=== PATIENT | male | born 1990 | race Two or more races ===

== ENCOUNTER 2024-10-07 23:48 | Emergency (ER) | payer MEDICAID, SELFPAY ==
[2024-10-07 23:58] VITALS: BP 159/109; PULSE 121; RESP 18; TEMP 37.4; O2SAT 99
--- NOTE | 2024-10-08 00:19 | EKG_ITS ---
[facility] Test Date: 2024-10-08 Pat Name: ALEXUS EAGLE Department: Room: - Gender: Male Hand Packer: : 1990 Requested By: Sanket Farfan Order Number: [id number] Reading MD: Sanket Farfan Measurements Intervals [place] Rate: 122 P: 37 MD: 126 QRS: 55 QRSD: 85 T: 23 QT: 295 QTc: 421 Interpretive Statements SINUS TACHYCARDIA LOW QRS VOLTAGE IN PRECORDIAL LEADS [QRS DEFLECTION < 1.0 mV IN CHEST LEADS] NONSPECIFIC T-WAVE ABNORMALITY ABNORMAL RHYTHM ECG No previous ECG available for comparison /store/S0/[id number].pdf
--- NOTE | 2024-10-08 00:20 | PD.EDRME ---
Rapid Medical Screening Exam RME Arrival date/time: 10/07/24 23:48 34 year old male present to ED for c/o dizziness, weakness. I have greeted and performed a focused initial assessment of this patient. A comprehensive ED assessment and evaluation of the patient, analysis of all test results, and completion of the medical decision making process will be conducted by additional ED providers. Chief Complaint: General Adult/Misc Complain Time Seen by Provider: 10/07/24 23:59 Vital signs: Vital Signs Temperature 99.4 F 10/07/24 23:58 Pulse Rate 121 H 10/07/24 23:58 Respiratory Rate 18 10/07/24 23:58 Blood Pressure 159/109 H 10/07/24 23:58 Pulse Oximetry (%) 99 10/07/24 23:58 Oxygen Delivery Method Room Air 10/07/24 23:58
[2024-10-08 01:06] LABS: Basophils # (Auto) 0.1 Thou/mm3 (0.0-0.2); Basophils % (Auto) 1 % (0-2.5); Eosinophils # (Auto) 0.1 Thou/mm3 (0.0-0.5); Eosinophils % (Auto) 1 % (0-10); Hematocrit 44.4 % (41.0-53.0); Hemoglobin 15.5 g/dL (13.5-16.0); Immature Granulocytes % (Auto) 0 % (0-0); Immature Granulocytes Auto 0.02 Thou/mm3 (0.00-0.00); Lymphocytes # (Auto) 1.4 Thou/mm3 (1.0-4.8); Lymphocytes % (Auto) 14 % (10-50); Mean Corpuscular HGB Conc 34.9 g/dl (31.0-37.0); Mean Corpuscular Volume 92 fL (80-100); Monocytes # (Auto) 0.8 Thou/mm3 (0.0-0.8); Monocytes % (Auto) 8 % (0-12); Neutrophils # (Auto) 7.6 Thou/mm3 (1.8-7.7); Neutrophils % (Auto) 77 % (37-80); Nucleated Red Blood Cell % 0 /100 WBC (0); Platelet Count 316 Thou/mm3 (140-440); RDW Standard Deviation 38.5 fL (35.1-43.9); Red Blood Count 4.85 Miln/mm3 (4.50-5.90)
[2024-10-08 01:30] LABS: Collection Type, Urine Voided; Squamous Epithelial Cell,Urine 0 /hpf (0-5); WBC,Urine 0 /hpf (0-5)
[2024-10-08 01:36] LABS: Bilirubin,Urine Negative (Negative); Blood,Urine Negative (Negative); Clarity,Urine Clear (Clear/Hazy); Color,Urine Colorless (Lt Yel-Yel); Glucose, Urine Negative (Negative); Ketones,Urine Negative (Negative); Leukocyte Esterase,Urine Negative (Negative); Nitrite,Urine Negative (Negative); Protein,Urine Negative (Neg - Trace); RBC,Urine < 1 /hpf (0-3); Specific Gravity,Urine 1.015 (1.001-1.035); Urobilinogen,Urine Negative mg/dL (0.0-1.0)
[2024-10-08 01:37] LABS: Alanine Aminotransferase 24 U/L (10-49); Albumin, Serum 4.7 gm/dL (3.5-5.0); Alcohol, Blood Medical < 3.0 mg/dL (0-10.0); Alkaline Phosphatase 111 U/L (46-116); Anion Gap 8 (7-16); Aspartate Amino Transferase 18 U/L (0-34); BUN/Creatinine Ratio 12 Ratio (12-20); Bilirubin,Total 0.6 mg/dL (0.3-1.2); Blood Urea Nitrogen 11 mg/dL (9-23); Calcium 9.2 mg/dL (8.3-10.6); Calcium (Corrected) 9.2 mg/dL (8.5-10.1); Carbon Dioxide 25.8 mMol/L (20.0-31.0); Chloride 106 mMol/L (98-107); Creatinine (Component) 0.9 mg/dL (0.6-1.3); Globulin 2.3 gm/dL (2.3-3.5); Glucose 141 mg/dL (74-106); Lipase 36 U/L (12-53); Osmolality,Calculated 280 (275-295); Potassium 3.8 mMol/L (3.4-5.1); Sodium 140 mMol/L (136-145); Troponin I < 0.020 ng/mL (0.0-0.045); eGFR > 60 See Note
[2024-10-08 01:42] LABS: Amphetamine/Methamp Scrn,U Negative (Negative); Barbiturate Screen,Urine Negative (Negative); Benzodiazepines Screen,Urine Negative (Negative); Benzoylecgonine Screen, Ur Negative (Negative); Fentanyl Screen,Urine Negative (Negative); Opiate Screen,Urine Negative (Negative); THC Screen,Urine Negative (Negative)
[2024-10-08 03:34] LABS: Troponin I < 0.002 ng/mL (0.0-0.045)
[2024-10-08 03:49] VITALS: BP 151/89; PULSE 97; RESP 18; TEMP 36.6; O2SAT 97
--- NOTE | 2024-10-08 03:50 | EDNOTE_ITS ---
<Statement entered by Holly Spann MD - 10/08/24 05:11> As co-signing physician, I was present and available for consult prn. I concur with the plan and care as documented by the midlevel provider. ED General RME/HPI General Chief complaint: General Adult/Misc Complain Stated complaint: DIZZINESS, SHAKING, HIGH BP Time Seen by Provider: 10/07/24 23:59 Arrival date/time: 10/07/24 23:48 34 year old male present to emergency room with c/o of dizziness and heart palpitation today. denies any alcohol or illicit drug use SEVERITY: Symptoms are described as being severe with limitations on activities of daily living CONTEXT: The patient is unable to identify any inciting events. DURATION/TIMING: The symptoms started approximately one day mauricio and have been constant since and have been progressive getting worse. ASSOCIATED SYMPTOMS: dizziness, weakness, rapid hr MODIFYING FACTORS: The patient is unable to identify any alleviating or aggravating symptoms. PERTINENT ROS: no fevers, no cough, no pleuritic pain, no ripping or tearing sensations, denies any lower extremity edema and no unilateral swelling, no chest pain/shortness of breath no nausea,vomiting, diarrhea, no headache no rash no loc/syncope episode no abd/back pain no dsyuria,urgency,frequency REVIEW OF SYSTEMS: See History of Present Illness - with the exception of those mentioned in the history of present illness, all other systems reviewed and reported as negative GENERAL: In general the patient is awake, interactive, in an emergency department gurney. HEAD/EYES/EARS/NOSE/THROAT: normo-cephalic, atraumatic, mucus membranes are moist, anicteric, palpebral conjunctiva is pink, trachea is midline. CARDIOVASCULAR: regular rate and regular rhythm, no murmurs, heart sounds are not distant, strong pulses in all four extremities that are equal and symmetric bilateral upper and lower extremities, normal capillary refill. CHEST/PULMONARY: + tachycardia normal chest rise and fall, good air movement, clear to auscultation bilaterally, normal inspiratory to expiratory ratios without evidence of respiratory distress. NECK: No midline/Paraspinal tenderness, no step off ROM/Strenght intact No Kernig and bruzinski sign. No trauma ABDOMEN: soft, not tender, no masses appreciated BACK: normal range of motion without pain. NEUROLOGICAL: cranio-facial features are symmetric, moves all four extremities equally without obvious limitations or weakness. EXTREMITY: no tenderness to palpation over the long bones or large joints of the bilateral upper and lower extremities, no joint swelling, no joint erythema, no signs of trauma, no unilateral leg swelling and no peripheral edema. SKIN: warm, dry, well-perfused, no jaundice, no rash, no telangiectasias or petechia. PSYCH: calm, cooperative, no evidence of psychosis or agitation RME / HPI RME / HPI narrative: 10/07/24 23:48 34 year old male present to ED for c/o dizziness, weakness. I have greeted and performed a focused initial assessment of this patient. A comprehensive ED assessment and evaluation of the patient, analysis of all test results, and completion of the medical decision making process will be conducted by additional ED providers. Related Data Previous Rx's ?Medication ?Instructions ?Recorded hydrocodone 5 mg-acetaminophen 325 1 tab PO Q4H PRN pain #14 tabs 03/01/20 mg tablet ([place]) Allergies Allergy/AdvReac Type Severity Reaction Status Date / Time No Known Allergies Allergy Verified 03/01/20 11:23 Course Course Course Narrative: The patient is suffering from tachycardia, but the immediate cause is not apparent. Potential causes considered include, but are not limited to, infection, pulmonary embolism, pericarditis, dehydration, anemia, pheochromocytoma, drug/alcohol withdrawal or intoxication. Workup:?CBC, CMP, UA, UDS, trop, alcohol? ECG, covid/flu? Well criteria low risk for DVT/PE heart score: 1 low risk for acs? Interventions:? Despite the evaluation including history, exam, and testing, the cause of the tachycardia remains unclear. However the history, exam, and tests do not raise concern for the above emergent diagnoses. Disposition: During the ED stay, patient?s tachycardia improved, and at the time of discharge they are feeling well and want to go home. Quality Measures none Orders Category Date Time Status Bedside COVID-19 Antigen Test NOW Care 10/08/24 00:20 Completed Bedside Influenza A&B Antigen Test NOW Care 10/08/24 00:20 Completed EKG (ED ONLY) *Do not use* NOW Care 10/08/24 00:19 Completed EKG (ED Only) Stat Exams 10/08/24 00:19 Draft Alcohol, Blood Medical Stat Lab 10/08/24 00:36 Completed CBC Stat Lab 10/08/24 00:36 Completed CMP [Comprehensive Metabolic Panel] Stat Lab 10/08/24 00:36 Completed Drug Screen,Urine Stat Lab 10/08/24 00:55 Completed Lipase Stat Lab 10/08/24 00:36 Completed Troponin I Stat Lab 10/08/24 00:36 Completed Troponin I Stat Lab 10/08/24 03:00 Completed UA [Urinalysis] Stat Lab 10/08/24 00:55 Completed Reevaluation(s) Reevaluation #1: pt report feeling better and comfortable to go home. Vital Signs Vital signs: Vital Signs Temperature 99.4 F 10/07/24 23:58 Pulse Rate 121 H 10/07/24 23:58 Respiratory Rate 18 10/07/24 23:58 Blood Pressure 159/109 H 10/07/24 23:58 Pulse Oximetry (%) 99 10/07/24 23:58 Oxygen Delivery Method Room Air 10/07/24 23:58 Procedures -ED EKG Interpretation #1: Date of EK10/08/24 Rate: 122 Interpretation: Reviewed by me EKG Impression: No acute ST-T changes, No ischemic changes and Sinus tachycardia MDM Patient data External records reviewed:: None Clinical information provided by:: patient Social determinants that could affect healthcare access:: none Patient has the following chronic illnesses:: none How is presenting disease/condition affected by chronic disease/condition?: no chronic disease Evaluation data The following diagnostics were reviewed and interpreted by me:: lab results, radiology exam(s) and EKG tracing(s) Lab and/or radiology exams considered but not ordered:: none Interpretation Summary: cbc/cmp/tropx2 negative drug negative alcohol negative Medications Medications considered but not ordered:: none Medication administrations:: none Consultations Consultation(s) initiated? (list below): No Diagnosis Differential Diagnosis ED Complaint MDM: as stated in mdm Most likely diagnosis given after review of the tests above:: anxiety vs tachycardia vs dizziness unknown etiology Admission Indicated Admission indicated?: not indicated Explain why admission is indicated or not indicated:: not indicated Admission Request Was there a request for admission?: No Disposition Plan Disposition Plan: Discharge Discharge Attestation Discharge Attestation: The patient and all family members were given an opportunity to ask questions and understood the discharge instructions. Discharge instructions specifically effects, indications for sooner follow up or return to the emergency department, and the expected course of current diagnosis. Patient condition: Stable Medical Decision Making Differential Diagnosis Differential Diagnosis: as stated in [facility] Lab Data 10/08/24 00:36 10/08/24 00:36 Labs: Lab Results 10/08/24 10/08/24 10/08/24 Range/Units 00:36 00:55 03:00 WBC 10.0 (3.8-10.6) Thou/mm3 RBC 4.85 (4.50-5.90) Miln/mm3 Hgb 15.5 (13.5-16.0) g/dL Hct 44.4 (41.0-53.0) % MCV 92 (80-100) fL MCH 32.0 (25.0-35.0) pg MCHC 34.9 (31.0-37.0) g/dl RDW Std Deviation 38.5 (35.1-43.9) fL Plt Count 316 (140-440) Thou/mm3 Neut % (Auto) 77 (37-80) % Lymph % (Auto) 14 (10-50) % [place] % (Auto) 8 (0-12) % Eos % (Auto) 1 (0-10) % Baso % (Auto) 1 (0-2.5) % Neut # (Auto) 7.6 (1.8-7.7) Thou/mm3 Lymph # (Auto) 1.4 (1.0-4.8) Thou/mm3 Dare # (Auto) 0.8 (0.0-0.8) Thou/mm3 Eos # (Auto) 0.1 (0.0-0.5) Thou/mm3 Baso # (Auto) 0.1 (0.0-0.2) Thou/mm3 Immature Gran # (Auto) 0.02 H (0.00-0.00) Thou/mm3 Absolute Nucleated RBC 0.00 (0.00-0.00) Thou/mm3 Immature Gran % 0 (0-0) % Nucleated RBC % 0 (0) /100 WBC Sodium 140 (136-145) mMol/L Potassium 3.8 (3.4-5.1) mMol/L Chloride 106 (98-107) mMol/L Carbon Dioxide 25.8 (20.0-31.0) mMol/L Anion Gap 8 (7-16) BUN 11 (9-23) mg/dL Creatinine 0.9 (0.6-1.3) mg/dL Estim Creat Clear Calc Not Performed. eGFR > 60 (60 - ) See Note BUN/Creatinine Ratio 12 (12-20) Ratio Glucose 141 H (74-106) mg/dL Calculated Osmolality 280 (275-295) Calcium 9.2 (8.3-10.6) mg/dL Corrected Calcium 9.2 (8.5-10.1) mg/dL Total Bilirubin 0.6 (0.3-1.2) mg/dL AST 18 (0-34) U/L ALT 24 (10-49) U/L Alkaline Phosphatase 111 (46-116) U/L Troponin I < 0.020 < 0.002 (0.0-0.045) ng/mL Total Protein 7.0 (5.7-8.2) gm/dL Albumin 4.7 (3.5-5.0) gm/dL Globulin 2.3 (2.3-3.5) gm/dL Albumin/Globulin Ratio 2.0 (1.2-2.2) Lipase 36 (12-53) U/L Ur Collection Type Voided Urine Color Colorless A (Lt Yel-Yel) Urine Clarity Clear (Clear/Hazy) Urine pH 7.0 (5.0-7.0) Ur Specific [place] 1.015 (1.001-1.035) Urine Protein Negative (Neg - Trace) Urine Glucose (UA) Negative (Negative) Urine Ketones Negative (Negative) Urine Blood Negative (Negative) Urine Nitrite Negative (Negative) Urine Bilirubin Negative (Negative) Urine Urobilinogen (Auto) Negative (0.0-1.0) mg/dL Ur Leukocyte Esterase Negative (Negative) Urine RBC < 1 (0-3) /hpf Urine WBC 0 (0-5) /hpf Ur Squamous Epith Cells 0 (0-5) /hpf Urine Bacteria None (None) Urine Opiates Screen Negative (Negative) Urine Fentanyl Screen Negative (Negative) Ur Barbiturates Screen Negative (Negative) U Amphetamin/Meth Scrn Negative (Negative) U Benzodiazepines Scrn Negative (Negative) U Cocaine Metab Screen Negative (Negative) U Marijuana (THC) Screen Negative (Negative) Ethyl Alcohol < 3.0 (0-10.0) mg/dL Discharge Plan Plan Patient Disposition: HOME (Self Care) Health Concerns: Follow with PMD as directed Return to ED if sx worsen Prescriptions/Referrals Prescriptions/Med Rec: No Action hydrocodone-acetaminophen [[place]] 5-325 mg tablet 1 tab PO Q4H MDD 5 PRN (Reason: pain) Qty: 14 0RF Referrals: No Primary/Family,Physician [Primary Care Provider] - In 1 week Problem List Clinical Impression: Dizziness, Tachycardia Patient/Caregiver Discharge Instructions Education Materials: Understanding Tachycardia, ED Dizziness, Uncertain Cause Print Language: German Stand Alone Forms: Anna Award Info., Patient Portal Info Letter
== END 2024-10-08 04:02 | disposition home or self-care (01) ==
PROVIDERS: Physician Assistant; Emergency Provider Emergency Medicine
DX: R42 Dizziness and giddiness (principal); R00.0 Tachycardia, unspecified
CPT/HCPCS: 36415; 80053; 80307; 80320; 81001; 83690; 84484; 85025; 87400; 87811; 93005; 99283; G0480

== ENCOUNTER 2025-01-14 17:22 | Emergency (ER) | payer SELFPAY ==
[2025-01-14 17:24] VITALS: BMI 28.3
[2025-01-14 18:28] VITALS: BP 134/77; PULSE 148; RESP 14; TEMP 37.2; O2SAT 99
--- NOTE | 2025-01-14 18:33 | XR_ITS ---
Examination: AP chest single view Technique one AP portable upright chest single view Exam date and time: January 24, 2025 1556 hrs. Indications: Tachycardia today. Findings: Normal heart size No pneumonia or pulmonary edema The osseous structures are intact Impression: No pneumonia or pulmonary edema
--- NOTE | 2025-01-14 18:33 | EDNOTE_ITS ---
ED General RME/HPI General Chief complaint: Anxiety Stated complaint: ANXIETY ATTACK, DIZZINESS, FAST HEART RATE Time Seen by Provider: 01/14/25 17:54 Arrival date/time: 01/14/25 17:22 RME / HPI RME / HPI narrative: Patient is 34 years old male with PMH of meth use came to the ED due to anxiety and SOB. He reports he use meth yesterday and today was only drinking beer when he developed sudden palpitations, SOB and severe anxiety and fear of dying. He denies chest pain, fever, chills, nausea, vomiting, abdominal pain. He denies using drugs today. He does not smoke tobacco. He denies prior history of cardiac or pulmonary diseases. He works as a class a regional truck driver. Related Data Previous Rx's ?Medication ?Instructions ?Recorded hydrocodone 5 mg-acetaminophen 325 1 tab PO Q4H PRN pa in #14 tabs 03/01/20 mg tablet ([place]) Allergies Allergy/AdvReac Type Severity Reaction Status Date / Time No Known Allergies Allergy Verified 01/14/25 17:24 Review of Systems Review of Systems Systems Reviewed: All systems reviewed, normal except as documented ED Exam Narrative Physical exam: Gen: Well-developed dishevel male. HEENT: NCAT, PERRLA, EOMI, MMM, anicteric conjunctivae. CVS: normal S1 and S2. Regular tachycardia. No M/R/G. Resp: CTA B/L. No rhonchi, rales, crackles or wheezing. Abd: soft, non-tender, non-distended. BS+ in all 4 quadrants. MSK: Good ROM in BUE & BLE. No edema or rash. Neuro: CN II-XII grossly intact. Strength 5/5 in BUE & BLE. Alert and oriented x3. Psych: Appears anxious. Course Course Course Narrative: 1821: EKG showed sinus tachycardia at 150 BPM. 1829: Troponin I negative. 1899: Lorazepam 2 mg IV. 1929: NS 500cc bolus. 1944: potassium 40 mEq. 2019: Utox positive for alcohol and meth. 314: CTA negative for PE. HR improving, in 120s now. Quality Measures none Orders Category Date Time Status CT Screening NOW Care 01/14/25 21:[address] angio chest Stat Exams 01/14/25 21:35 Taken CXRP [XR chest 1V portable] Stat Exams 01/14/25 18:33 Completed Alcohol, Urine Stat Lab 01/14/25 20:20 Completed CBC Stat Lab 01/14/25 18:30 Completed CMP [Comprehensive Metabolic Panel] Stat Lab 01/14/25 18:30 Completed Drug Screen,Urine Stat Lab 01/14/25 20:20 Completed Magnesium Stat Lab 01/14/25 18:30 Completed Troponin I Stat Lab 01/14/25 18:30 Completed Urinalysis Stat Lab 01/14/25 20:20 Completed LORazepam [Ativan Inj] Med 01/14/25 18:34 Discontinued 2 mg IVP X1 ONE Potassium Chloride [K-Dur] Med 01/14/25 19:46 Discontinued 40 meq PO X1 ONE Sodium Chloride 0.9% 500 ml [Ns] 500 ml Med 01/14/25 19:13 Discontinued IV 999 mls/hr Vital Signs Vital signs: Vital Signs Temperature 99 F 01/14/25 18:28 Pulse Rate 148 H 01/14/25 18:28 Respiratory Rate 14 01/14/25 18:28 Blood Pressure 134/77 H 01/14/25 18:28 Pulse Oximetry (%) 99 01/14/25 18:28 Oxygen Delivery Method Room Air 01/14/25 18:28 Procedures -ED EKG Interpretation #1: Date of EK01/14/25 Time of EK:22 Rate: 150 Interpretation: Reviewed by me EKG Impression: Sinus tachycardia MDM Patient data External records reviewed:: [facility] previous records Clinical information provided by:: patient Social determinants that could affect healthcare access:: substance use Patient has the following chronic illnesses:: meth use How is presenting disease/condition affected by chronic disease/condition?: c aused by Evaluation data The following diagnostics were reviewed and interpreted by me:: lab results, radiology exam(s) and EKG tracing(s) Lab and/or radiology exams considered but not ordered:: na Interpretation Summary: Sinus tachycardia, mild dehydration Medications Medications considered but not ordered:: Aspirin, heparin Medication administrations:: Medication Administration History Discontinued Medications Sodium Chloride (Ns) 500 mls @ 999 mls/hr IV .Q31M ONE Stop: 01/14/25 19:43 Last Infusion: 01/14/25 19:54 Dose: Infused Documented By: Admin: 01/14/25 19:23 Dose: 999 mls/hr Documented By: SARA Lorazepam (Lorazepam 2 Mg/Ml Vial) 2 mg IVP X1 ONE Stop: 01/14/25 18:35 Last Admin: 01/14/25 18:48 Dose: 2 mg Documented By: SHAQUILLE Potassium Chloride (Potassium Chloride 20 Meq Tabcr) 40 meq PO X1 ONE Stop: 01/14/25 19:47 Last Admin: 01/14/25 20:15 Dose: 40 meq Documented By: SARA Lorazepam 2 mg, NS 500cc, potassium 40 mEq. Consultations Consultation(s) initiated? (list below): No Diagnosis Differential Diagnosis ED Complaint MDM: Meth intoxication, withdrawal, ACS, SVT, PE Most likely diagnosis given after review of the tests above:: Meth intoxication Admission Indicated Admission indicated?: not indicated Explain why admission is indicated or not indicated:: Patient is likely having meth intoxication and is detoxing now and improving. He will need to stop using meth and follow up with PCP outpatient. Admission Request Was there a request for admission?: No Disposition Plan Disposition Plan: Discharge Discharge Attestation Discharge Attestation: The patient and all family members were given an opportunity to ask questions and understood the discharge instructions. Discharge instructions specifically effects, indications for sooner follow up or return to the emergency department, and the expected course of current diagnosis. Patient condition: Stable Medical Decision Making MDM Narrative MDM Narrative: Well's score for PE 1.5 points, low risk. I, Dr. Macario was present for the pertinent history and physical exam, management and review of all labs and studies along with the resident. I agree with his management. The note was reviewed and agree. Repeat heart rate is 118. The patient does not have a CT angio. Return precautions are given and understood. Differential Diagnosis Differential Diagnosis: Meth intoxication, withdrawal, ACS, SVT, PE Lab Data 01/14/25 18:30 01/14/25 18:30 Labs: Lab Results 01/14/25 01/14/25 Range/Units 18:30 20:20 WBC 14.2 H (3.8-10.6) Thou/mm3 RBC 5.21 (4.50-5.90) Miln/mm3 Hgb 16.1 H (13.5-16.0) g/dL Hct 45.5 (41.0-53.0) % MCV 87 (80-100) fL MCH 30.9 (25.0-35.0) pg MCHC 35.4 (31.0-37.0) g/dl RDW Std Deviation 40.2 (35.1-43.9) fL Plt Count 368 (140-440) Thou/mm3 Neut % (Auto) 63 (37-80) % Lymph % (Auto) 29 (10-50) % [place] % (Auto) 7 (0-12) % Eos % (Auto) 0 (0-10) % Baso % (Auto) 0 (0-2.5) % Neut # (Auto) 9.0 H (1.8-7.7) Thou/mm3 Lymph # (Auto) 4.2 (1.0-4.8) Thou/mm3 [place] # (Auto) 1.0 H (0.0-0.8) Thou/mm3 Eos # (Auto) 0.0 (0.0-0.5) Thou/mm3 Baso # (Auto) 0.1 (0.0-0.2) Thou/mm3 Immature Gran # (Auto) 0.03 H (0.00-0.00) Thou/mm3 Absolute Nucleated RBC 0.00 (0.00-0.00) Thou/mm3 Immature Gran % 0 (0-0) % Nucleated RBC % 0 (0) /100 WBC Sodium 143 (136-145) mMol/L Potassium 3.4 (3.4-5.1) mMol/L Chloride 106 (98-107) mMol/L Carbon Dioxide 19.1 L (20.0-31.0) mMol/L Anion Gap 18 H (7-16) BUN 9 (9-23) mg/dL Creatinine 1.0 (0.6-1.3) mg/dL Estim Creat Clear Calc 97.3 (>60) mL/min eGFR > 60 (60 - ) See Note BUN/Creatinine Ratio 9 L (12-20) Ratio Glucose 112 H (74-106) mg/dL Calculated Osmolality 284 (275-295) Calcium 9.1 (8.3-10.6) mg/dL Corrected Calcium 9.1 (8.5-10.1) mg/dL Magnesium 2.2 (1.6-2.6) mg/dL Total Bilirubin 0.6 (0.3-1.2) mg/dL AST 25 (0-34) U/L ALT 31 (10-49) U/L Alkaline Phosphatase 128 H (46-116) U/L Troponin I < 0.020 (0.0-0.045) ng/mL Total Protein 7.9 (5.7-8.2) gm/dL Albumin 5.1 H (3.5-5.0) gm/dL Globulin 2.8 (2.3-3.5) gm/dL Albumin/Globulin Ratio 1.8 (1.2-2.2) Ur Collection Type Clean Catch Urine Color Lt-Yellow (Lt Yel-Yel) Urine Clarity Clear (Clear/Hazy) Urine pH 6.0 (5.0-7.0) Ur Specific [place] 1.012 (1.001-1.035) Urine Protein Negative (Neg - Trace) Urine Glucose (UA) Negative (Negative) Urine Ketones 1+ A (Negative) Urine Blood Negative (Negative) Urine Nitrite Negative (Negative) Urine Bilirubin Negative (Negative) Urine Urobilinogen (Auto) Negative (0.0-1.0) mg/dL Ur Leukocyte Esterase Negative (Negative) Urine RBC 1 (0-3) /hpf Urine WBC < 1 (0-5) /hpf Ur Squamous Epith Cells 0 (0-5) /hpf Urine Bacteria None (None) Urine Opiates Screen Negative (Negative) Urine Fentanyl Screen Negative (Negative) Ur Barbiturates Screen Negative (Negative) U Amphetamin/Meth Scrn Positive A (Negative) U Benzodiazepines Scrn Negative (Negative) U Cocaine Metab Screen Negative (Negative) U Marijuana (THC) Screen Negative (Negative) Urine Alcohol Positive A (Negative) Discharge Plan Plan Patient Disposition: HOME (Self Care) Patient condition on transfer: Stable Prescriptions/Referrals Prescriptions/Med Rec: No Action hydrocodone-acetaminophen [[place]] 5-325 mg tablet 1 tab PO Q4H MDD 5 PRN (Reason: pain) Qty: 14 0RF Referrals: No Primary/Family,Physician [Primary Care Provider] - In 1 week Problem List Clinical Impression: Intoxication by drug, Acute anxiety, Alcohol intoxication Patient/Caregiver Discharge Instructions Additional Instructions: Recommendations after ER visit: -stop using drugs including methamphetamine. -you have incidental finding of 2.6 cm nonspecific left adrenal nodule. You will need to follow up with PCP for further diagnostic. Failure to do so can lead to serious complication including . -follow up with PCP within 1 week. -If you don't have a PCP, you can make an appointment at the [facility]: [address] [place] [address] Print Language: Uzbek Stand Alone Forms: Anna Award Info., Patient Portal Info Letter
[2025-01-14] MEDS: LORazepam 2 MG/ML VIAL IVP (18:48)
[2025-01-14 19:01] LABS: Basophils # (Auto) 0.1 Thou/mm3 (0.0-0.2); Basophils % (Auto) 0 % (0-2.5); Eosinophils % (Auto) 0 % (0-10); Hematocrit 45.5 % (41.0-53.0); Hemoglobin 16.1 g/dL (13.5-16.0); Immature Granulocytes % (Auto) 0 % (0-0); Immature Granulocytes Auto 0.03 Thou/mm3 (0.00-0.00); Lymphocytes # (Auto) 4.2 Thou/mm3 (1.0-4.8); Lymphocytes % (Auto) 29 % (10-50); Mean Corpuscular HGB Conc 35.4 g/dl (31.0-37.0); Mean Corpuscular Hemoglobin 30.9 pg (25.0-35.0); Mean Corpuscular Volume 87 fL (80-100); Monocytes % (Auto) 7 % (0-12); Neutrophils % (Auto) 63 % (37-80); Nucleated Red Blood Cell % 0 /100 WBC (0); Platelet Count 368 Thou/mm3 (140-440); RDW Standard Deviation 40.2 fL (35.1-43.9); Red Blood Count 5.21 Miln/mm3 (4.50-5.90); White Blood Count 14.2 Thou/mm3 (3.8-10.6)
[2025-01-14 19:20] LABS: Alanine Aminotransferase 31 U/L (10-49); Albumin, Serum 5.1 gm/dL (3.5-5.0); Albumin/Globulin Ratio 1.8 (1.2-2.2); Alkaline Phosphatase 128 U/L (46-116); Anion Gap 18 (7-16); Aspartate Amino Transferase 25 U/L (0-34); BUN/Creatinine Ratio 9 Ratio (12-20); Bilirubin,Total 0.6 mg/dL (0.3-1.2); Blood Urea Nitrogen 9 mg/dL (9-23); Calcium 9.1 mg/dL (8.3-10.6); Calcium (Corrected) 9.1 mg/dL (8.5-10.1); Carbon Dioxide 19.1 mMol/L (20.0-31.0); Chloride 106 mMol/L (98-107); Estimated Creatinine Clearance 97.3 mL/min (>60); Globulin 2.8 gm/dL (2.3-3.5); Glucose 112 mg/dL (74-106); Magnesium 2.2 mg/dL (1.6-2.6); Osmolality,Calculated 284 (275-295); Potassium 3.4 mMol/L (3.4-5.1); Sodium 143 mMol/L (136-145); Total Protein 7.9 gm/dL (5.7-8.2); Troponin I < 0.020 ng/mL (0.0-0.045); eGFR > 60 See Note
[2025-01-14] MEDS: SODIUM CHLORIDE 0.9% 500 ML 500 ML 999 ML IV (19:23)
[2025-01-14 20:00] VITALS: BP 134/77; PULSE 148; RESP 18; O2SAT 98
[2025-01-14] MEDS: POTASSIUM CHLORIDE 20 mEq TABCR 40 MEQ PO (20:15)
[2025-01-14 20:31] LABS: Collection Type, Urine Clean Catch; Squamous Epithelial Cell,Urine 0 /hpf (0-5)
[2025-01-14 20:39] LABS: Bilirubin,Urine Negative (Negative); Blood,Urine Negative (Negative); Clarity,Urine Clear (Clear/Hazy); Color,Urine Lt-Yellow (Lt Yel-Yel); Glucose, Urine Negative (Negative); Ketones,Urine 1+ (Negative); Leukocyte Esterase,Urine Negative (Negative); Nitrite,Urine Negative (Negative); Protein,Urine Negative (Neg - Trace); RBC,Urine 1 /hpf (0-3); Specific Gravity,Urine 1.012 (1.001-1.035); Urobilinogen,Urine Negative mg/dL (0.0-1.0); WBC,Urine < 1 /hpf (0-5)
[2025-01-14 20:55] LABS: Alcohol, Urine Positive (Negative); Amphetamine/Methamp Scrn,U Positive (Negative); Barbiturate Screen,Urine Negative (Negative); Benzodiazepines Screen,Urine Negative (Negative); Benzoylecgonine Screen, Ur Negative (Negative); Fentanyl Screen,Urine Negative (Negative); Opiate Screen,Urine Negative (Negative); THC Screen,Urine Negative (Negative)
[2025-01-14 21:33] VITALS: BP 135/75; PULSE 151; RESP 20; TEMP 36.8; O2SAT 98
--- NOTE | 2025-01-14 21:35 | XR_ITS ---
Examination: CTA chest with intravenous contrast 2-D reconstructions 3-D reconstructions, vascular Date and time of exam: January 15, 2025 0137 hrs. Indications: Chest pain shortness of breath today CTDI: vol (mGy) 10 DLP: (mGycm) 385 Technique: Multiple axial sections of the thorax have been obtained. 3 mm slice thickness, from below the hemidiaphragms to above the apices of the lungs. Mediastinal and lung density settings have been obtained. 2-D sagittal and coronal reconstructions. 3-D angiographic renderings, 3-D volume renderings, 3D post processing, vascular maximum intensity projections obtained. Contrast administered is 100 cc Isovue-370. Low dose protocols were performed. One or more of the following dose reduction techniques were used; automated exposure control, adjustment of the mA and/or KV according to patient size, use of iterative reconstruction technique. Findings: No thoracic aortic aneurysm dilatation or dissection No pulmonary artery emboli No pneumonia or pulmonary edema or pleural disease 6 mm left thyroid nodule No mediastinal lymphadenopathy 25 mm indeterminate left adrenal nodule Impression: Negative for pulmonary artery emboli No pneumonia or pulmonary edema or pleural disease 6 mm left thyroid nodule, consider thyroid sonography follow-up 25 mm indeterminate left adrenal nodule, suggest MRI abdomen adrenal glands follow-up pre and postcontrast
[2025-01-14 23:00] VITALS: BP 145/77; PULSE 134; RESP 18; O2SAT 98
[2025-01-15] VITALS: BP 144/84; PULSE 138; RESP 18; TEMP 36.9; O2SAT 99
[2025-01-15 01:00] VITALS: BP 148/92; PULSE 130; RESP 18; O2SAT 97
--- NOTE | 2025-01-15 01:50 | PC.NURSE ---
Back from Ct-scan via w/c, no distress noted.
[2025-01-15 02:00] VITALS: BP 135/86; PULSE 126; RESP 18; O2SAT 96
--- NOTE | 2025-01-15 03:12 | PRELIM_ITS ---
CT angiogram of the chest with intravenous contrast (axial sections with sagittal and coronal reformats). January 15, 2025 at 0137 hours Clinical History: Rule out pulmonary thromboembolism. Comparison: None. Findings: Heart is normal in size. There is no pericardial or pleural effusion. There is no thoracic aortic aneurysm or dissection. There is no filling defect within the pulmonary arterial circulation. Small 7 mm left lobe thyroid hypodensity noted. There is no thoracic lymphadenopathy. The lungs are clear. There is no pneumothorax. Limited evaluation of the upper abdomen reveals a 2.6 cm left adrenal nodule which is nonspecific. There is no acute osseous abnormality. Impression: 1. No thoracic aortic aneurysm or dissection. No pulmonary arterial embolism. No pericardial or pleural effusion. No pneumothorax. 2. A 2.6 cm nonspecific left adrenal nodule. Report Electronically Signed By: Gilberto Finn 01/15/2025 3:11:47 AM [EST]
[2025-01-15 04:14] VITALS: BP 121/74; PULSE 118; RESP 18; TEMP 36.9; O2SAT 98
== END 2025-01-15 04:33 | disposition home or self-care (01) ==
PROVIDERS: Emergency Provider Student in an Organized Health Care Education/Training Program
DX: F41.9 Anxiety disorder, unspecified (principal); F10.129 Alcohol abuse with intoxication, unspecified; T50.905A Adverse effect of unspecified drugs, medicaments and biological substances, initial encounter
CPT/HCPCS: 36415; 71045; 71275; 80053; 80307; 80320; 81001; 83735; 84484; 85025; 96360; 99285; A4649; J2060; J7040; Q9967; A9270; G0480

== ENCOUNTER 2025-01-16 13:14 | Outpatient (AMB) | payer MEDICAID, SELFPAY ==
[2025-01-16 13:32] VITALS: BP 122/78; PULSE 67; RESP 16; TEMP 36.6; O2SAT 98; BMI 27.9
--- NOTE | 2025-01-16 13:32 | PD.RESCLINIC ---
Vital Signs 01/16/25 13:32 Height 1.63 m Height Method Stated Weight 73.936 kg Weight Measurement Method Standing Scale BMI 27.9 BP 122/78 Blood Pressure Source Automatic Cuff Blood Pressure Location Left Upper Arm Position Sitting Respiration 16 Pulse 67 Pulse Source Monitor Temp 97.8 F Temp Source Temporal Artery Scan Pulse Oximetry (%) 98 Oxygen Delivery Method Room Air Allergies/Meds Allergies & Medications Allergies No Known Allergies Allergy (Verified 01/16/25 13:32) Medication Reconciliation hydrocodone 5 mg-acetaminophen 325 mg tablet ([place]) 1 tab PO Q4H PRN pain #14 tabs 03/01/20 [Rx Confirmed 01/16/25] fluoxetine 40 mg capsule 40 mg PO QDAY 1 month #30 caps 01/16/25 [Rx] MA Intake Visit Data Collection New Patient or Established: Established Patient (seen at [facility] within 3 years) Seen by Clinical Staff ONLY (RN/MA): No Pain Present Currently: No Pain scale:: 0 Pain Scale Used: Sanchez-Lee/Numerical Overcoiler Required: No PCP or OBGYN visit in last 3 months: No Hx Now: No Do You Feel Safe at Home: Yes Authorities Contacted: N/A Smoking Status Smoking Status: Never smoker Immunization / Flu Flu Vaccine in the Last 12 Months: No Flu Vaccine Exclusion Criteria: No Exclusion Criteria Past Medical History Past Medical History NEUROLOGIC: Negative Neurological Disorders, Cerebrovascular Accident, Transient Ischemic Attacks (TIA), Dementia, Alzheimer's Disease, Parkinson's Disease, Brain Tumor, Meningitis, Seizures, Epilepsy, Multiple Sclerosis, Cerebral Palsy, Amyotrophic Lateral Sclerosis (ALS/Lori Gehrig's), Guillain-Am[place] Syndrome, Spina Bifida, Paralysis, Bear's Palsy, Subdural Hematoma, Migraine, Head Trauma, Spinal Cord Injury or Traumatic Brain Injury CARDIAC: Negative Cardiac Disorders, Myocardial Infarction, Cardiac Arrhythmia, Atrial Fibrillation, Angina, Heart Murmur, Coronary Artery Disease, Atherosclerotic Heart Disease, Peripheral Vascular Disease, Hypercholesterolemia, Aneurysm, Congestive Heart Failure, Congenital Heart Disease, Valvular Heart Disease, Rheumatic Fever, Cardiomyopathy, Edema, Pericarditis, Cellulitis, Deep Vein Thrombosis, Hypertension, Hypotension or Varicose Veins RESPIRATORY: Negative Chronic Obstructive Pulmonary Disease (COPD) or Asthma GASTROINTESTINAL: Negative Gastrointestinal Disorders, Cirrhosis, Pancreatitis, Celiac Disease, Gall Bladder Disease, Gastrointestinal Bleed, Gonzalez's Esophagus, Colitis, Ulcerative Colitis, Diverticulitis, Diverticulosis, Ulcer, Irritable Bowel, Crohn's Disease, Obstructive Bowel, Hiatal Hernia, Hemorrhoids, Gastroesophageal Reflux Disease or Obesity GENITOURINARY: Negative Genitourinary Disorders, Renal Disease, Kidney Stones, Polycystic Kidney Disease, Neurogenic Bladder, Inguinal Hernia, Dialysis or Benign Prostatic Hyperplasia REPRODUCTIVE: Negative Genital Herpes, Gonorrhea, Syphilis or Testicular Cancer ENT: Negative Cataracts, Glaucoma, Blind, Retinal Detachment, Macular Degeneration, Ear Infection, Deafness, Head Trauma or Eye Prosthesis ENDOCRINE: Negative Diabetes Mellitus Type 1, Diabetes Mellitus Type 2, Hypoglycemia, Hyperthyroidism, Hypothyroidism, Parathyroid Disease, Pituitary Disease, Systemic Lupus Erythematosus, Syndrome of Inappropriate Antidiuretic Hormone (SIADH) or Graves' Disease HEMATOLOGIC: Negative Blood Disorders, Anemia, Leukemia, Hemophilia, Thalassemia, Sickle Cell Disease or Clotting Problems PSYCHO/SOCIAL: Negative Psychiatric Problems, Schizophrenia, Recreational Drug Use, Bipolar Disorder, Depression, Anxiety, Behavior Problems, Self-Mutilation, Attention Deficit Disorder or Eating Disorder OTHER HISTORY: Negative Hospitalization, Down Syndrome, Autism, Developmental Delay, Shingles, Falls, Blood Transfusions, Blood Transfusion Reaction, Anesthesia Reactions, Organ Transplant, Chemotherapy, Radiation Therapy, Hyperbaric Therapy or Testicular Cancer Family History FAMILY HISTORY: Negative Family Psychiatric Problems, Family Respiratory Disorders, Family Cardiac Disorders, Family Gastrointestinal Problems, Family Cancer, Family Surgery or Family Anesthesia Reaction Surgical History SURGICAL: Negative Cardiac Surgery, Open Heart Surgery, Coronary Artery Bypass Graft, Valve Replacement, Pacemaker, Ear Surgery, Eye Surgery, Nose Surgery, Oral Surgery, Tonsillectomy, Abdominal Surgery, Gastric Bypass Surgery, Gastrostomy, Bowel Surgery, Nephrectomy, Transurethral Resection, Neurologic Surgery, Brain Shunt, Vasectomy or Organ Transplant Social History SMOKING STATUS: Smoking status: Never smoker ALCOHOL: Alcohol Intake: Never Patient [employer] Social History Tobacco History Smoking Status: Never smoker Alcohol History Alcohol Intake: Never Domestic Abuse History Do You Feel Safe at Home: Yes Review of Systems Report any current symptoms Only answer those that you have currently: Past Medical History Past Medical History Have you ever been diagnosed with any of the following: Neurological Problems Cerebrovascular Accident (CVA): No Transient Ischemic Attacks (TIA): No Dementia: No Alzheimer's Disease: No Parkinson's Disease: No Brain Tumor: No Meningitis: No Seizures: No Epilepsy: No Multiple Sclerosis: No Cerebral Palsy: No Amyotrophic Lateral Sclerosis (ALS/Lori Gehrig's): No Guillain-Am[place] Syndrome: No Spina Bifida: No Paralysis: No Bear's Palsy: No Subdural Hematoma: No Migraine: No Head Trauma: No Spinal Cord Injury: No Traumatic Brain Injury: No Cardiology Problems Myocardial Infarction: No Cardiac Arrhythmia: No Atrial Fibrillation: No Angina: No Heart Murmur: No Coronary Artery Disease: No Atherosclerotic Heart Disease: No Peripheral Vascular Disease: No Hypercholesterolemia: No Aneurysm: No Congestive Heart Failure: No Congenital Heart Disease: No Valvular Heart Disease: No Rheumatic Fever: No Cardiomyopathy: No Edema: No Pericarditis: No Cellulitis: No Deep Vein Thrombosis: No Hypertension: No Hypotension: No Varicose Veins: No Respiratory Problems Chronic Obstructive Pulmonary Disease (COPD): No Asthma: No Stomache/Intestinal Problems Cirrhosis: No Pancreatitis: No Celiac Disease: No Gall Bladder Disease: No Gastrointestinal Bleed: No Gonzalez's Esophagus: No Colitis: No Ulcerative Colitis: No Diverticulitis: No Diverticulosis: No Ulcer: No Irritable Bowel: No Crohn's Disease: No Obstructive Bowel: No Hiatal Hernia: No Hemorrhoids: No Gastroesophageal Reflux Disease: No Obesity: No Genital/Urinary Problems Renal Disease: No Kidney Stones: No Polycystic Kidney Disease: No Neurogenic Bladder: No Inguinal Hernia: No Dialysis: No Benign Prostatic Hyperplasia: No Reproductive Problems Genital Herpes: No Gonorrhea: No Syphilis: No Testicular Cancer: No Head,Eye,Nose,Throat Problems Cataracts: No Glaucoma: No Blind: No Retinal Detachment: No Macular Degeneration: No Chronic Ear Infections: No Deafness: No Eye Prosthesis: No Endocrine Problems Diabetes Mellitus Type 1: No Diabetes Mellitus Type 2: No Hypoglycemia: No Hyperthyroidism: No Hypothyroidism: No Parathyroid Disease: No Pituitary Disease: No Systemic Lupus Erythematosus: No Syndrome of Inappropriate Antidiuretic Hormone: No Graves' Disease: No Blood Problems Anemia: No Leukemia: No Hemophilia: No Thalassemia: No Sickle Cell Disease: No Clotting Problems: No Psychologic Problems Schizophrenia: No Recreational Drug Use: No Bipolar Disorder: No Depression: No Anxiety: No Behavior Problems: No Self-Mutilation: No Attention Deficit Disorder: No Eating Disorder: No Other Problems Hospitalization: No Down Syndrome: No Autism: No Developmental Delay: No Shingles: No Falls: No Blood Transfusions: No Blood Transfusion Reaction: No Anesthesia Reactions: No Organ Transplant: No Chemotherapy: No Radiation Therapy: No Hyperbaric Therapy: No Surgical History Coronary Artery Bypass Graft: No Valve Replacement: No Pacemaker: No History of Present Illness HPI Narrative 34-year-old male with past medical history of meth use, hypertension, and general anxiety disorder was seen at the [facility] today after recent ER visit on 01/14/2025. Patient went to the ER due to shortness of breath, uncontrolled anxiety, and feelings of demise. Patient stated that around a year ago he lost his mother from Alzheimer's disease progression and his father from a stroke. He stated that since this time he has been having anxiety and feelings of loneliness and wish he misses his parents significantly especially when he walks into their rooms and they are not there. Patient also stated that he has his and his 6-month-old daughter in [place] currently and they are not able to come to the [place] at this time. Patient mentioned that he was a pack smoker, vaping, and used to drink around a sixpack to a 12 pack of beers every day prior to his daughter being born, but he stopped using alcohol and vaping since his daughter was born. He also mentioned that he did use meth in the past when he was a teenager, but had not been using for many years. In the ED patient was positive for meth and for alcohol in his urine as well to which he confessed using meth and alcohol around 2 days prior to the ER visit. He mentioned that he did not use the substances as a coping system and that instead he was twos of his friends socializing. He mentions that he typically worries about financial stressors, family stressors, and feelings of loneliness, but he denies any suicidal or homicidal ideation at this time. He mentions that his symptoms since the past 6 months which are in accordance to when his daughter was born have been a little bit more pronounced with some weight loss, heat intolerance, palpitations, and feelings of despair. He also mentioned that he feels like his head is tight and that he is going to get a heart attack and starts worrying about that as well. In the ED patient's troponins were negative, but he did have some leukocytosis. He was also found to have an incidental thyroid nodule measuring 6 mm on the left thyroid as well as a 25 mm adrenal nodule on the left. CARO score of 15 indicating severe anxiety. Social Hx: Last used meth and alcohol on 01/13/2025, past smoker (vaping) FMH: Mother had diabetes and Alzheimer's disease, father had a stroke Medications: Fluoxetine 20 mg, losartan/hydrochlorothiazide as 50/12.5 mg, metoprolol 100 mg all from [facility] Review of Systems Review of Systems Narrative Review of Systems: Constitutional: Denies sweats, Admits weight loss, Denies fever, Denies chills. HEENT: Denies hearing loss, Denies ear pain, Denies postnasal drip, Denies double vision, Denies blurry vision. Respiratory: Admits shortness of breath, Denies cough, Denies wheezing. Cardiovascular: Admits chest pain, Admits palpitations, Denies sudden loss of consciousness. GI: Denies blood in stool, Denies constipation, Denies abdominal pain, Denies difficulty swallowing, Denies nausea or vomit. : Denies urinary incontinence, Denies pain while urinating, Denies increased urinary frequency. MSK: Denies joint pain, Denies joint swelling, Denies numbness. Skin: Denies rash, Denies itching, Denies easy bruising. Neuro: Denies headaches, Denies dizziness, Denies seizures. Objective/Exam General General Appearance: alert, in no apparent distress, comfortable and cooperative Head Head exam: atraumatic, normocephalic and normal inspection Eye Eye exam: Present normal appearance, PERRL and EOMI ENT ENT exam: Present normal exam, normal oropharynx and mucous membranes moist Neck Neck exam: Present normal inspection and full ROM Resp Respiratory exam: Present normal lung sounds bilaterally Card Cardiovascular exam: Present regular rate, normal rhythm and normal heart sounds Abdominal Abdominal exam: Present soft and normal bowel sounds Extremities Extremities exam: Present normal inspection, full ROM and normal capillary refill Neuro Neurological exam: Present alert, oriented X3, CN II-XII intact and normal gait Psych Psychiatric exam: Present anxious Skin Skin exam: Present warm and normal color Assessment & Plan Diagnosis / Problem List (1) Generalized anxiety disorder: Status: Acute Assessment & Plan: Patient states that he has been suffering from general anxiety disorder since 1 year ago when his parents CARO score 15 indicating severe anxiety Was taking fluoxetine 20 mg from [place] Plan: Will start patient on fluoxetine 40 mg and will follow-up in 2 weeks to see if any improvement Given that most of his symptoms could be due to anxiety versus thyroid issues we will also get TSH and T4 (2) Thyroid nodule: Status: Acute Assessment & Plan: Patient was found to have a 6 mm left thyroid nodule on chest CTA during his ER visit on 01/14/2025 Patient also has some palpitations as well as some heat intolerance and weight loss. Plan: Will order TSH and T4 Will also order ultrasound of thyroid (3) Adrenal nodule: Status: Acute Assessment & Plan: Patient had incidental finding of a 25 mm left adrenal nodule and his ER visit on 01/14/2025 Plan: Will get a.m. cortisol at 8 AM Will consider referring to facilities plant engineer if abnormal (4) Leukocytosis: Status: Acute Qualifiers: Leukocytosis type: unspecified Qualified Code(s): D72.829 - Elevated white blood cell count, unspecified Assessment & Plan: Patient was found to have some mild leukocytosis of 14.2 upon chart review from ER visit on 01/14/2025 Patient denies any fevers Most likely reactive Plan: Will get CBC to monitor Orders: Orders US thyroid 1 Week E04.1 - Nontoxic single thyroid nodule Office Procedures [facility] Level of Care Nursing/Assessment Patient Status: Established Patient Nursing Assessment/Reassessment: Medication Reconciliation, Update PMH in EMR and Vital Signs Coordination of Care: Complex Care and Chronic Disease 1-5, Consent,records obtained, informed consent, Education Simp Pt/Fam, Lab and Imaging orders and Staff clarify orders Established Patient Charge Established Patient Point Assignment: 100 Established Patient Point Charge: EP Level 3 (80-115)
== END 2025-01-16 14:21 | disposition home or self-care (01) ==
LOC: HODAHC 13:14
PROVIDERS: Supervising Provider Internal Medicine
DX: F41.1 Generalized anxiety disorder (principal); E04.1 Nontoxic single thyroid nodule; E27.8 Other specified disorders of adrenal gland; D72.829 Elevated white blood cell count, unspecified
CPT/HCPCS: 99213; G0463

== ENCOUNTER 2025-01-30 13:34 | Outpatient (AMB) | payer MEDICAID, SELFPAY ==
[2025-01-30 13:51] VITALS: BP 116/72; PULSE 56; RESP 16; TEMP 36.3; O2SAT 98; BMI 28.8
--- NOTE | 2025-01-30 13:51 | ACNOTE_ITS ---
Vital Signs 01/30/25 13:51 Height 1.63 m Height Method Stated Weight 76.43 kg Weight Measurement Method Standing Scale BMI 28.8 BP 116/72 Blood Pressure Source Automatic Cuff Blood Pressure Location Left Upper Arm Position Sitting Respiration 16 Pulse 56 L Pulse Source Monitor Temp 97.3 F Temp Source Temporal Artery Scan Pulse Oximetry (%) 98 Oxygen Delivery Method Room Air Allergies/Meds Allergies & Medications Allergies No Known Allergies Allergy (Verified 01/30/25 13:52) Medication Reconciliation hydrocodone 5 mg-acetaminophen 325 mg tablet ([place]) 1 tab PO Q4H PRN pain #14 tabs 03/01/20 [Rx Confirmed 01/30/25] fluoxetine 40 mg capsule 40 mg PO QDAY 1 month #30 caps 01/16/25 [Rx Confirmed 01/30/25] MA Intake Visit Data Collection New Patient or Established: Established Patient (seen at [facility] within 3 years) Seen by Clinical Staff ONLY (RN/MA): No Pain Present Currently: No Pain scale:: 0 Pain Scale Used: Sanchez[employer]Lee/[employer]ical [employer] Intern Required: No PCP or OBGYN visit in last 3 months: No Hx Now: No Do You Feel Safe at Home: Yes Authorities Contacted: N/A Smoking Status Smoking Status: Never smoker Immunization / Flu Flu Vaccine in the Last 12 Months: No Flu Vaccine Exclusion Criteria: No Exclusion Criteria Past Medical History Past Medical History NEUROLOGIC: Negative Neurological Disorders, Cerebrovascular Accident, Transient Ischemic Attacks (TIA), Dementia, Alzheimer's Disease, Parkinson's Disease, Brain Tumor, Meningitis, Seizures, Epilepsy, Multiple Sclerosis, Cerebral Palsy, Amyotrophic Lateral Sclerosis (ALS/Lori Gehrig's), Guillain-Pontotoc Syndrome, Spina Bifida, Paralysis, Bear's Palsy, Subdural Hematoma, Migraine, Head Trauma, Spinal Cord Injury or Traumatic Brain Injury CARDIAC: Negative Cardiac Disorders, Myocardial Infarction, Cardiac Arrhythmia, Atrial Fibrillation, Angina, Heart Murmur, Coronary Artery Disease, Atherosclerotic Heart Disease, Peripheral Vascular Disease, Hypercholesterolemia, Aneurysm, Congestive Heart Failure, Congenital Heart Disease, Valvular Heart Disease, Rheumatic Fever, Cardiomyopathy, Edema, Pericarditis, Cellulitis, Deep Vein Thrombosis, Hypertension, Hypotension or Varicose Veins RESPIRATORY: Negative Chronic Obstructive Pulmonary Disease (COPD) or Asthma GASTROINTESTINAL: Negative Gastrointestinal Disorders, Cirrhosis, Pancreatitis, Celiac Disease, Gall Bladder Disease, Gastrointestinal Bleed, Gonzalez's Esophagus, Colitis, Ulcerative Colitis, Diverticulitis, Diverticulosis, Ulcer, Irritable Bowel, Crohn's Disease, Obstructive Bowel, Hiatal Hernia, Hemorrhoids, Gastroesophageal Reflux Disease or Obesity GENITOURINARY: Negative Genitourinary Disorders, Renal Disease, Kidney Stones, Polycystic Kidney Disease, Neurogenic Bladder, Inguinal Hernia, Dialysis or Benign Prostatic Hyperplasia REPRODUCTIVE: Negative Genital Herpes, Gonorrhea, Syphilis or Testicular Cancer ENT: Negative Cataracts, Glaucoma, Blind, Retinal Detachment, Macular Degeneration, Ear Infection, Deafness, Head Trauma or Eye Prosthesis ENDOCRINE: Negative Diabetes Mellitus Type 1, Diabetes Mellitus Type 2, Hypoglycemia, Hyperthyroidism, Hypothyroidism, Parathyroid Disease, Pituitary Disease, Systemic Lupus Erythematosus, Syndrome of Inappropriate Antidiuretic Hormone (SIADH) or Graves' Disease HEMATOLOGIC: Negative Blood Disorders, Anemia, Leukemia, Hemophilia, Thalassemia, Sickle Cell Disease or Clotting Problems PSYCHO/SOCIAL: Negative Psychiatric Problems, Schizophrenia, Recreational Drug Use, Bipolar Disorder, Depression, Anxiety, Behavior Problems, Self-Mutilation, Attention Deficit Disorder or Eating Disorder OTHER HISTORY: Negative Hospitalization, Down Syndrome, Autism, Developmental Delay, Shingles, Falls, Blood Transfusions, Blood Transfusion Reaction, Anesthesia Reactions, Organ Transplant, Chemotherapy, Radiation Therapy, Hyperbaric Therapy or Testicular Cancer Family History FAMILY HISTORY: Negative Family Psychiatric Problems, Family Respiratory Disorders, Family Cardiac Disorders, Family Gastrointestinal Problems, Family Cancer, Family Surgery or Family Anesthesia Reaction Surgical History SURGICAL: Negative Cardiac Surgery, Open Heart Surgery, Coronary Artery Bypass Graft, Valve Replacement, Pacemaker, Ear Surgery, Eye Surgery, Nose Surgery, Oral Surgery, Tonsillectomy, Abdominal Surgery, Gastric Bypass Surgery, Gastrostomy, Bowel Surgery, Nephrectomy, Transurethral Resection, Neurologic Surgery, Brain Shunt, Vasectomy or Organ Transplant Social History SMOKING STATUS: Smoking status: Never smoker ALCOHOL: Alcohol Intake: Never Patient Portal Questionaires Social History Tobacco History Smoking Status: Never smoker Alcohol History Alcohol Intake: Never Domestic Abuse History Do You Feel Safe at Home: Yes Review of Systems Report any current symptoms Only answer those that you have currently: Past Medical History Past Medical History Have you ever been diagnosed with any of the following: Neurological Problems Cerebrovascular Accident (CVA): No Transient Ischemic Attacks (TIA): No Dementia: No Alzheimer's Disease: No Parkinson's Disease: No Brain Tumor: No Meningitis: No Seizures: No Epilepsy: No Multiple Sclerosis: No Cerebral Palsy: No Amyotrophic Lateral Sclerosis (ALS/Lori Gehrig's): No Guillain-Pontotoc Syndrome: No Spina Bifida: No Paralysis: No Bear's Palsy: No Subdural Hematoma: No Migraine: No Head Trauma: No Spinal Cord Injury: No Traumatic Brain Injury: No Cardiology Problems Myocardial Infarction: No Cardiac Arrhythmia: No Atrial Fibrillation: No Angina: No Heart Murmur: No Coronary Artery Disease: No Atherosclerotic Heart Disease: No Peripheral Vascular Disease: No Hypercholesterolemia: No Aneurysm: No Congestive Heart Failure: No Congenital Heart Disease: No Valvular Heart Disease: No Rheumatic Fever: No Cardiomyopathy: No Edema: No Pericarditis: No Cellulitis: No Deep Vein Thrombosis: No Hypertension: No Hypotension: No Varicose Veins: No Respiratory Problems Chronic Obstructive Pulmonary Disease (COPD): No Asthma: No Stomache/Intestinal Problems Cirrhosis: No Pancreatitis: No Celiac Disease: No Gall Bladder Disease: No Gastrointestinal Bleed: No Gonzalez's Esophagus: No Colitis: No Ulcerative Colitis: No Diverticulitis: No Diverticulosis: No Ulcer: No Irritable Bowel: No Crohn's Disease: No Obstructive Bowel: No Hiatal Hernia: No Hemorrhoids: No Gastroesophageal Reflux Disease: No Obesity: No Genital/Urinary Problems Renal Disease: No Kidney Stones: No Polycystic Kidney Disease: No Neurogenic Bladder: No Inguinal Hernia: No Dialysis: No Benign Prostatic Hyperplasia: No Reproductive Problems Genital Herpes: No Gonorrhea: No Syphilis: No Testicular Cancer: No Head,Eye,Nose,Throat Problems Cataracts: No Glaucoma: No Blind: No Retinal Detachment: No Macular Degeneration: No Chronic Ear Infections: No Deafness: No Eye Prosthesis: No Endocrine Problems Diabetes Mellitus Type 1: No Diabetes Mellitus Type 2: No Hypoglycemia: No Hyperthyroidism: No Hypothyroidism: No Parathyroid Disease: No Pituitary Disease: No Systemic Lupus Erythematosus: No Syndrome of Inappropriate Antidiuretic Hormone: No Graves' Disease: No Blood Problems Anemia: No Leukemia: No Hemophilia: No Thalassemia: No Sickle Cell Disease: No Clotting Problems: No Psychologic Problems Schizophrenia: No Recreational Drug Use: No Bipolar Disorder: No Depression: No Anxiety: No Behavior Problems: No Self-Mutilation: No Attention Deficit Disorder: No Eating Disorder: No Other Problems Hospitalization: No Down Syndrome: No Autism: No Developmental Delay: No Shingles: No Falls: No Blood Transfusions: No Blood Transfusion Reaction: No Anesthesia Reactions: No Organ Transplant: No Chemotherapy: No Radiation Therapy: No Hyperbaric Therapy: No Surgical History Coronary Artery Bypass Graft: No Valve Replacement: No Pacemaker: No History of Present Illness HPI Narrative 34-year-old male with past medical history of meth use, hypertension, and general anxiety disorder was seen at [email or web address] today for follow-up after increasing the dose of his fluoxetine and labs results. Patient states that since starting the new dose of fluoxetine he has felt a lot better. Currently has CARO score of 2. Patient's lab work showed normal TSH, T4, and WBC. Patient's cortisol level did come back increase at 23.4. Patient states she does not feel any palpitations or having any difficulty sleeping. Will consider referring patient to engine service repairer after cortisol suppression test ordered. Concerning patient's hypertension seems to be well-controlled with his current medications. Social Hx: Last used meth and alcohol on 01/13/2025, past smoker (vaping) FMH: Mother had diabetes and Alzheimer's disease, father had a stroke Medications: Fluoxetine 40 mg, losartan/hydrochlorothiazide as 50/12.5 mg, metoprolol 100 mg all from [place] Review of Systems Review of Systems Narrative Review of Systems: Constitutional: Denies sweats, Denies weight loss, Denies fever, Denies chills. HEENT: Denies hearing loss, Denies ear pain, Denies postnasal drip, Denies double vision, Denies blurry vision. Respiratory: Denies shortness of breath, Denies cough, Denies wheezing. Cardiovascular: Denies chest pain, Denies palpitations, Denies sudden loss of consciousness. GI: Denies blood in stool, Denies constipation, Denies abdominal pain, Denies difficulty swallowing, Denies nausea or vomit. : Denies urinary incontinence, Denies pain while urinating, Denies increased urinary frequency. MSK: Denies joint pain, Denies joint swelling, Denies numbness. Skin: Denies rash, Denies itching, Denies easy bruising. Neuro: Denies headaches, Denies dizziness, Denies seizures. Objective/Exam General General Appearance: alert, in no apparent distress, comfortable and cooperative Head Head exam: atraumatic, normocephalic and normal inspection Eye Eye exam: Present normal appearance, PERRL and EOMI ENT ENT exam: Present normal exam, normal oropharynx and mucous membranes moist Neck Neck exam: Present normal inspection and full ROM Resp Respiratory exam: Present normal lung sounds bilaterally Card Cardiovascular exam: Present regular rate, normal rhythm and normal heart sounds Abdominal Abdominal exam: Present soft and normal bowel sounds Extremities Extremities exam: Present normal inspection, full ROM and normal capillary refill Neuro Neurological exam: Present alert, oriented X3, CN II-XII intact and normal gait Psych Psychiatric exam: Present normal affect and normal mood Skin Skin exam: Present warm and normal color Assessment & Plan Diagnosis / Problem List (1) Generalized anxiety disorder: Status: Acute Assessment & Plan: Patient has been feeling a lot better since last visit and since going up on his fluoxetine to 40 mg. CARO score 2 today Plan: Will continue fluoxetine 40 mg daily and will follow-up in 1 month (2) Adrenal nodule: Status: Acute Assessment & Plan: Patient had incidental finding of a 25 mm left adrenal nodule and his ER visit on 01/14/2025 Morning cortisol elevated at 23.4 Plan: Will order dexamethasone suppression test Will consider referring to engine service repairer if abnormal (3) Elevated morning serum cortisol level: Status: Acute Assessment & Plan: Morning cortisol elevated at 23.4 Plan: Will order dexamethasone suppression test Will consider referring to engine service repairer if abnormal (4) Thyroid nodule: Status: Acute Assessment & Plan: Patient was found to have a 6 mm left thyroid nodule on chest CTA during his ER visit on 01/14/2025 TSH and T4 within normal limits on lab work from 01/2025 No more palpitations Plan: Will follow-up in 1 month Pending ultrasound of thyroid (5) Leukocytosis: Status: Acute Qualifiers: Leukocytosis type: unspecified Qualified Code(s): D72.829 - Elevated white blood cell count, unspecified Assessment & Plan: WBCs were 7.7 on 01/2025 No spikes in fevers Plan: Resolved Office Procedures [facility] Level of Care Nursing/Assessment Patient Status: Established Patient Nursing Assessment/Reassessment: Medication Reconciliation, Update PMH in EMR and Vital Signs Coordination of Care: Complex Care and Chronic Disease 1-5, Consent,records obtained, informed consent, Education Simp Pt/Fam, Results/Orders obtained and Staff clarify orders Established Patient Charge Established Patient Point Assignment: 90 Established Patient Point Charge: Level 3 (80-115)
== END 2025-01-30 14:52 | disposition home or self-care (01) ==
LOC: HODAHC 13:34
PROVIDERS: Supervising Provider Internal Medicine
DX: Z71.2 Person consulting for explanation of examination or test findings (principal); I10 Essential (primary) hypertension; F41.1 Generalized anxiety disorder; E27.8 Other specified disorders of adrenal gland; E04.1 Nontoxic single thyroid nodule; D72.829 Elevated white blood cell count, unspecified
CPT/HCPCS: 99213; G0463